=== PATIENT | female | born 1965 ===

== ENCOUNTER → 2016-06-27 | Outpatient (CLI) | payer OTHER ==
--- NOTE | 2016-06-27 14:50 | MA ---
Diagnostic Digital Mammogram With iCAD Analysis Clinical Indications: Follow up palpable mass in the upper-outer left breast, which has receded follo wing antibiotic treatment. Technique: Standard cephalocaudal and mediolateral oblique projections were obtained. Additionally, o blique and craniocaudal spot compressions were performed bilaterally and true lateral views of the ri ght and left breast were also obtained. This examination was processed by the iCAD computer-aided det ection system. Comparison: Outside mammographic studies dated January 2014, February 2012, September 2007, February 7. Reports from the prior studies are not available. Breast density: Type B; Scattered fibroglandular densities. Findings: CAD was reviewed. There is a heterogeneous glandular pattern bilaterally. There is a nodula r opacity in the medial right breast, which is probably unchanged dating back to 2006, although it do es appear slightly more conspicuous currently. In the upper-outer left breast there is mild asymmetry , presumably related to involution of an inflammatory process. There was a nodular opacity in this re gion on the older studies and the inflammation could have been related to breast inflammation seconda ry to an infected cyst. No spiculated masses, suspicious calcifications or other signs of malignancy are identified. Impression: Asymmetries bilaterally require further evaluation. BI-RADS 0. Recommendation: Bilateral breast ultrasound, which will be subsequently performed today. A verbal report was given to the patient. [facility] will send a result letter to the patient. Negative mammography should not preclude additional workup of a clinically suspicious finding. The patient's information is entered into a reminder system with a target due date for her next mammo gram.
--- NOTE | 2016-06-27 15:50 | US ---
Bilateral Breast Ultrasound History: Evaluate bilateral asymmetries noted on diagnostic mammography performed earlier today. Technique: Longitudinal and transverse images were obtained utilizing a 15-MHz transducer. Color Do ppler evaluation is employed for assessment of vascularity. Findings : No discrete palpable abnormality is identified in either breast. Sonographic interrogatio n of the upper outer left breast where the patient had recent marked inflammation, which has essentia lly completely resolved, demonstrates a complex cyst at the 1 o'clock position 6 cm from the nipple. Adjacent to the cyst, there is a rounded area of heterogeneous echogenicity, and the constellation o f findings would be consistent with a cyst that had become infected and now the infection is nearly r esolved. On older mammograms, there was a nodular asymmetry in this region, which subsequently invol uted. Evaluation on the right at the 1:30 position 10 cm from the nipple, there is an oval, well-circumscri bed solid nodular lesion, measuring 1.7 x 0.7 cm. This would correlate well with the mammographic fi nding. This is unchanged from older mammographic studies from [facility]. Impressions 1. Benign findings right breast, BI-RADS 2.. 2. Involution of inflammatory changes in the upper outer left breast, benign findings, BI-RADS 2. Recommendation: Resume routine mammographic screening in one year as long as physical examination is negative. Findings and follow-up recommendations were reviewed with the patient in detail. [facility] will send a result letter to the patient.
== END ==
LOC: BMCIMAGING 12:51
PROVIDERS: ATTEND Internal Medicine
DX: R92.8 Other abnormal and inconclusive findings on diagnostic imaging of breast (principal); N60.02 Solitary cyst of left breast
CPT/HCPCS: G0204

== ENCOUNTER → 2017-10-15 | Outpatient (CLI) | payer OTHER | LOC: BMCIMAGING 12:52 | PROVIDERS: ATTEND Internal Medicine | DX: M43.12 Spondylolisthesis, cervical region (principal); M50.322 Other cervical disc degeneration at C5-C6 level; M50.323 Other cervical disc degeneration at C6-C7 level; M47.894 Other spondylosis, thoracic region ==